=== PATIENT | female | born 2005 | race Caucasian/White ===

== ENCOUNTER 2024-05-21 07:35 | Emergency (ER) | payer OTHER, SELFPAY ==
[2024-05-21 07:40] VITALS: BP 135/89; PULSE 80; O2SAT 98
--- NOTE | 2024-05-21 07:43 | ED_ITS ---
HPI - Abdominal Pain General Chief Complaint: Abdominal Pain Stated Complaint: abd pain,sent by [facility] Time Seen by Provider: 05/21/24 07:43 Source: patient, RN notes reviewed, old records reviewed and other ([facility]) Mode of arrival: Family Vehicle Limitations: no limitations History of Present Illness HPI narrative: 19-year-old female with complaint of lower abdominal pain for the past 3 days states it has been bilateral lower abdominal. No fevers she has had chills. She has had nausea but no vomiting. Denies any back or flank pain. Patient states no dysuria, urgency frequency or hematuria, no new vaginal discharge or bleeding. Patient states she did have diarrhea yesterday but states she ate something that she thought was bad. No black or bloody stools reported. Patient sexually active, states she has not particularly suspicious for STIs. Last menstrual period was over a year ago, patient states she is on oral contraception. Also takes an antidepressant as her only other medication. States no prior surgeries. Reports allergy to penicillin but she states it is her mom's allergy and she was concerned that she could have the same as she has similar allergies otherwise. No tobacco, occasional alcohol, no recreational drugs. Jen Nuñez is her primary care provider in [place]. Related Data Previous Rx's Medication Instructions Recorded polymyxin B sulfate 10,000 1 drp [facility] QID #10 mL 01/04/17 unit-trimethoprim 1 mg/mL eye drops (Polytrim) cephalexin 500 mg capsule 500 mg PO Q8H #15 caps 05/21/24 phenazopyridine 200 mg tablet 200 mg PO TID PRN pain 6 doses #6 05/21/24 (Pyridium) tabs Allergies Allergy/AdvReac Type Severity Reaction Status Date / Time Penicillins Allergy Verified 05/21/24 07:43 Review of Systems Review of Systems ROS Unobtainable: All systems reviewed & are unremarkable except as noted in HPI and below Patient History Social History Smoking Status: Never smoker Exam Narrative Exam Narrative: GENERAL: Alert and oriented x three, well-appearing female in mild distress HEENT: Head normocephalic, atraumatic, EOMI, pupils reactive, face symmetric, moist mucous membranes NECK: Supple, full range of motion CARDIOVASCULAR: Regular rate and rhythm without murmurs, rubs or gallops. RESPIRATORY: Breath sounds equal bilaterally, no wheezes rales or rhonchi. ABDOMEN: Soft, bilateral lower abdominal pain. Normoactive bowel sounds all 4 quadrants. No guarding or rebound, rigidity, no mass, nondistended. : No CVA tenderness EXTREMITIES: Normal range of motion, no clubbing or edema. Neurovascularly intact NEUROLOGICAL: Cranial nerves II through XII grossly intact. Moving all extremities SKIN: Warm, dry, no petechiae, no rashes or lesions. Initial Vital Signs Initial Vital Signs: Vital Signs Pulse Rate 80 05/21/24 07:40 Blood Pressure 135/89 05/21/24 07:40 Pulse Oximetry 98 05/21/24 07:40 Course Orders Ordered: Discontinued Medications Ketorolac Tromethamine (Ketorolac 30 Mg/Ml Vial) 15 mg IV NOW ONE Stop: 05/21/24 07:56 Last Admin: 05/21/24 08:09 Dose: 15 mg Documented By: GONZALES Vital Signs Vital signs: Vital Signs - 8 hr 05/21/24 07:40 05/21/24 07:40 05/21/24 07:44 Temperature 98.3 F Pulse Rate 80 81 Respiratory Rate 18 Blood Pressure 135/89 135/89 Pulse Oximetry 98 98 Oxygen Delivery Method Room Air 05/21/24 08:12 05/21/24 08:12 05/21/24 08:30 Temperature Pulse Rate 60 58 L Respiratory Rate Blood Pressure 106/57 L Pulse Oximetry 97 98 Oxygen Delivery Method 05/21/24 08:30 Temperature Pulse Rate Respiratory Rate Blood Pressure 106/61 Pulse Oximetry Oxygen Delivery Method MDM - Abdominal Pain Lab Data 05/21/24 07:45 05/21/24 07:45 Labs: Lab Results 05/21/24 05/21/24 Range/Units 07:45 08:00 WBC 10.3 (4.5-11.0) X10^3/uL RBC 4.33 (4.0-5.2) X10^6/uL Hgb 13.9 (12.0-16.0) g/dL Hct 40.2 (36-46) % MCV 92.7 (80-100) fL MCH 32.1 (26-34) PG MCHC 34.6 (30-36) % RDW 12.3 (11.6-14.8) % Plt Count 218 (150-400) X10^3/uL Neut % (Auto) 81.4 H (50-75) % Lymph % (Auto) 10.1 L (25-40) % [place] % (Auto) 8.0 (3-14) % Eos % (Auto) 0.2 L (2-4) % Baso % (Auto) 0.3 (0-2) % Neut # (Auto) 8400 H (8133-5824) /uL Lymph # (Auto) 1000 L (4026-4226) /uL [place] # (Auto) 800 (0-900) /uL Eos # (Auto) 0 (0-450) /uL Baso # (Auto) 0 (0-100) /uL Sodium 138 (137-145) mmol/L Potassium 4.0 (3.4-5.1) mmol/L Chloride 109 H (98-107) mmol/L Carbon Dioxide 19 L (22-32) mmol/L BUN 8 (7-17) mg/dL Creatinine 0.70 (0.52-1.04) mg/dL Estimated GFR > 60 (>60) mL/min BUN/Creatinine Ratio 11.4 (6-22) Glucose 95 (70-100) mg/dL Calcium 9.4 (8.4-10.2) mg/dL Total Bilirubin 1.3 (0.2-1.3) mg/dL AST 23 (14-36) IU/L ALT 17 (<35) IU/L Alkaline Phosphatase 58 (38-126) U/L Total Protein 7.5 (6.3-8.2) g/dL Albumin 4.7 (3.5-5.0) g/dL Globulin 2.8 (1.7-4.1) g/dL Albumin/Globulin Ratio 1.7 (1.0-2.8) Lipase 60 (23-300) U/L Urine RBC None seen (0-5/HPF) Urine WBC 5-10/hpf H (0-5/HPF) Ur Squamous Epith Cells 1-5 /hpf (0-5/HPF) Urine Bacteria Many (>30) H (None) Ur Culture Indicated? Specimen cultured Vol Urine Centrifuged 10ml (spun) Point of care testing: Point of Care Testing Test Results Negative Urine Dip Bedside Urine Glucose Negative Bedside Urine Bilirubin - Negative Bedside Urine Ketone +/- 5 Urine Specific [place] 1.025 Bedside Urine Occult Blood - Negative Bedside Urine pH 6.0 Bedside Urine Protein - Negative Bedside Urine Urobilinogen - Negative Bedside Urine Nitrite + Positive Bedside Urine Leukocytes + 70 Esterase MDM Narrative Medical decision making narrative: 19-year-old female with bilateral lower abdominal pain which she describes as starting bilaterally. Patient has not had any new GI or symptoms besides a small amount of diarrhea. She has had some chills nausea but no vomiting. Is on an oral contraceptive has not had menses in a year. Labs show white count of 10, hemoglobin of 13 platelets of 218, patient's sodium 138 potassium 4 chloride 109 CO2 of 19 BUN 8 creatinine 0.7, glucose is 95 LFTs are otherwise negative Urine is negative, point of care urine is positive for nitrates positive for leukocyte esterase, urine microscopy shows red cells, 5-10 white cells 1-5 squamous many bacteria. Was sent for culture. Patient's labs are overall reassuring patient has a nitrate positive urine suspect UTI. Patient has some generalized lower abdominal pain but no localization to the right. Discussed risks versus benefits with the patient that there small possibility of appendicitis but my suspicion is significantly lower with a positive urine and no localizing findings on exam. Patient has mild pain with palpation on both sides. We will hold off on imaging at this time with return precautions. Patient was where she starts have any localizing pain to the right or worsening symptoms she should return for repeat evaluation to rule out appendicitis or other causes. Patient is started on oral antibiotics. Patient received Toradol she is feeling improved. Discharge Plan Departure Patient Disposition: Home Clinical Impression: UTI (urinary tract infection) Instructions: DI for Urinary Tract Infection (UTI) Activity Restrictions/Additional Instructions: Follow up for recheck if you are not having any improvement over the next several days. Your urine does show signs of infection, a urine culture was sent he was take 48-72 hours to result and if there is resistance the antibiotics prescribed you would be contacted to change her antibiotic. You can take Tylenol up to a 1000 mg every 6 hours and/or ibuprofen up to 600 mg every 6 hours as needed for pain. You can also take Pyridium, 1 tablet every 8 hours as needed for dysuria or bladder spasm. This medication will make your urine bright orange. Take oral antibiotics until completed. Prescription sent to [facility] in [place]. Please return for fevers new or worsening abdominal, back or flank pain, persistent vomiting, black or bloody stools or other new or concerning changes. Prescriptions: New phenazopyridine [Pyridium] 200 mg tablet 200 mg PO TID PRN (Reason: pain) Qty: 6 0RF cephalexin 500 mg capsule 500 mg PO Q8H Qty: 15 0RF No Action polymyxin B sulf-trimethoprim [Polytrim] 10 ML drops 1 drp OPHTH QID Qty: 10 0RF Referrals: Miscellaneous,Doctor, MD [Primary Care Provider] - Stand Alone Forms: Patient Portal/API, Work Release Note
[2024-05-21 07:44] VITALS: BP 135/89; PULSE 81; RESP 18; TEMP 36.8; O2SAT 98; BMI 21.4
[2024-05-21 08:03] LABS: Add Manual Diff / Slide Review NO; Basophils Absolute Auto 0 /uL (0-100); Basophils Percent Auto 0.3 % (0-2); Eosinophils Absolute Auto 0 /uL (0-450); Eosinophils Percent Auto 0.2 % (2-4); Hematocrit 40.2 % (36-46); Hemoglobin 13.9 g/dL (12.0-16.0); Lymphocytes Absolute Auto 1000 /uL (1100-4500); Lymphocytes Percent Auto 10.1 % (25-40); Mean Corpuscular HGB Conc 34.6 % (30-36); Mean Corpuscular Hemoglobin 32.1 PG (26-34); Mean Corpuscular Volume 92.7 fL (80-100); Monocytes Absolute Auto 800 /uL (0-900); Neutrophils Absolute Auto 8400 /uL (1500-7000); Neutrophils Percent Auto 81.4 % (50-75); Platelet Count 218 X10^3/uL (150-400); Red Blood Cell Count 4.33 X10^6/uL (4.0-5.2); Red Cell Distribution Width 12.3 % (11.6-14.8); White Blood Cell Count 10.3 X10^3/uL (4.5-11.0)
[2024-05-21] MEDS: KETOROLAC 30 MG/ML VIAL 15 MG IV (08:09)
[2024-05-21 08:11] LABS: Alanine Aminotransferase 17 IU/L (<35); Albumin 4.7 g/dL (3.5-5.0); Albumin Globulin Ratio 1.7 (1.0-2.8); Alkaline Phosphatase 58 U/L (38-126); Aspartate Aminotransferase 23 IU/L (14-36); BUN Creatinine Ratio 11.4 (6-22); Bilirubin Total 1.3 mg/dL (0.2-1.3); Blood Urea Nitrogen 8 mg/dL (7-17); Calcium 9.4 mg/dL (8.4-10.2); Carbon Dioxide 19 mmol/L (22-32); Chloride 109 mmol/L (98-107); Estimated Glomerular Filt Rate > 60 mL/min (>60); Globulin 2.8 g/dL (1.7-4.1); Glucose 95 mg/dL (70-100); HEMOLYSIS < 15 (0-50); Lipase 60 U/L (23-300); Sodium 138 mmol/L (137-145); Total Protein 7.5 g/dL (6.3-8.2)
[2024-05-21 08:12] VITALS: BP 106/57; PULSE 60; O2SAT 97
[2024-05-21 08:23] LABS: Bacteria Urine Many (>30); Culture Indicated Urine Specimen Cultured; RBC Urine None Seen (0-5/HPF); Squamous Epithelial Cell Urine 1-5 /HPF (0-5/HPF); Urine Volume 10mL (spun); WBC Urine 5-10/HPF (0-5/HPF)
[2024-05-21 08:30] VITALS: BP 106/61; PULSE 58; O2SAT 98
== END 2024-05-21 08:43 | disposition home or self-care (01) ==
PROVIDERS: Emergency Provider Emergency Medicine
DX: N39.0 Urinary tract infection, site not specified (principal)
CPT/HCPCS: 80053; 81003; 81015; 81025; 83690; 85025; 87077; 87086; 87186; 96374; 99283; 99284; J1885